=== PATIENT | female | born 1940 | race Caucasian/White ===

== ENCOUNTER 2016-11-11 15:58 | Emergency (ER) | payer MEDICARE, OTHER ==
[~2016-11-11] VITALS: Ht 157.5 cm; Wt 114.1 kg
[~2016-11-11 15:58] MED LIST: AMLO5TAB96 PO; ASPI325T PO; CELE200 PO; CIPR500T4 PO; LISI-366 PO; METO25 PO; PHEN-426 PO; PRAV80TA PO; SERT100 PO
[2016-11-11 16:05] VITALS: BP 216/92; PULSE 60; RESP 14; TEMP 97.9; O2SAT 95
--- NOTE | 2016-11-11 16:23 | PD ---
HPI Chief Complaint: Flank/Kidney Pain Time Seen by Provider: 16:13 Travel History International Travel<30 days: No Contact w/Intl Traveler<30days: No History of Present Illness HPI 75 y/o female presents with left-sided upper back pain that is been present over the past couple of days. She denies other associated symptoms. The pain is worse whenever she lifts her arm or moves around. She denies any associated trauma but she has been doing a lot of moving. She states quality pain is sharp. Severity is moderate. She denies any specific other modifying factors. She denies recurrent history of this. PFSH Past Medical History Anxiety: No Depression: No High Cholesterol: Yes Gastrointestinal Disorders: Yes (ULCERATIVE COLITIS) Hypertension: Yes Musculoskeletal: Yes (BACK PAIN; DEGENERATIVE SPINE) Psychiatric: No Menopausal: Yes Past Surgical History Section: Yes Gynecologic Surgery: Yes (2 C-SECTIONS) Social History Tobacco Use: Yes (1/2 PACK) Substance Use: No Allergies-Medications (Allergen,Severity, Reaction): Coded Allergies: No Known Allergies (Verified , 11/11/16) Reported Meds & Prescriptions Reported Meds & Active Scripts Active Macrobid (Nitrofurantoin Monoh/Nitrofur Macro) 100 Mg Cap 100 Mg PO BID 3 Days Reported Hydrochlorothiazide 25 Mg Tab 25 Mg PO DAILY Lisinopril 40 mg (Lisinopril) 40 Mg Tab 40 Mg PO DAILY Zoloft (Sertraline HCl) 100 Mg Tab 100 Mg PO DAILY Metoprolol Tartrate 25 mg (Metoprolol Tartrate) 25 Mg Tab 25 Mg PO DAILY Norvasc (Amlodipine Besylate) 5 Mg Tab 5 Mg PO DAILY Zoloft (Sertraline HCl) 100 Mg Tab 100 Mg PO DAILY Review of Systems Except as stated in HPI: all other systems reviewed are Neg Physical Exam Narrative GENERAL: Well-nourished, well-developed patient. Well-appearing SKIN: Warm and dry. HEAD: Normocephalic and atraumatic. EYES: No injection or drainage. ENT: No nasal drainage noted. NECK: Supple, trachea midline. CARDIOVASCULAR: Regular rate and rhythm RESPIRATORY: Breath sounds equal bilaterally. No accessory muscle use. GASTROINTESTINAL: Abdomen soft, non-tender, nondistended. EXTREMITIES: No edema. BACK: Nontender without obvious deformity in midline, no CVA tenderness, left mid lateral lumbar spine area is tender without overlying skin changes. NEUROLOGICAL: Awake and alert. Motor and sensory grossly within normal limits. Normal speech. Data Data Last Documented VS Vital Signs Date Time Temp Pulse Resp B/P (MAP) Pulse Ox O2 Delivery O2 Flow Rate FiO2 11/11/16 18:04 11/11/16 16:05 97.9 60 14 95 Room Air Orders Orders Complete Blood Count With Diff (11/11/16 16:17) Comprehensive Metabolic Panel (11/11/16 16:17) Urinalysis - C+S If Indicated (11/11/16 16:17) Lipase (11/11/16 16:17) Ct Abd/Pel W/O Iv Contrast (11/11/16 ) Iv Access Insert/Monitor (11/11/16 16:17) Oximetry (11/11/16 16:17) Ketorolac Inj (Toradol Inj) (11/11/16 16:30) Urine Culture (11/11/16 16:30) Labs Laboratory Tests Test 11/11/16 16:30 White Blood Count 11.0 TH/MM3 Red Blood Count 4.87 MIL/MM3 Hemoglobin 14.0 GM/DL Hematocrit 42.7 % Mean Corpuscular Volume 87.8 FL Mean Corpuscular Hemoglobin 28.7 PG Mean Corpuscular Hemoglobin Concent 32.8 % Red Cell Distribution Width 13.7 % Platelet Count 276 TH/MM3 Mean Platelet Volume 8.8 FL Neutrophils (%) (Auto) 65.5 % Lymphocytes (%) (Auto) 18.6 % Monocytes (%) (Auto) 10.6 % Eosinophils (%) (Auto) 3.2 % Basophils (%) (Auto) 2.1 % Neutrophils # (Auto) 7.1 TH/MM3 Lymphocytes # (Auto) 2.1 TH/MM3 Monocytes # (Auto) 1.2 TH/MM3 Eosinophils # (Auto) 0.4 TH/MM3 Basophils # (Auto) 0.2 TH/MM3 CBC Comment DIFF FINAL Differential Comment Urine Collection Type CLEAN CATCH Urine Color YELLOW Urine Turbidity CLEAR Urine pH 6.0 Urine Specific [place] 1.005 Urine Protein TRACE mg/dL Urine Glucose (UA) NEG mg/dL Urine Ketones NEG mg/dL Urine Occult Blood TRACE Urine Nitrite NEG Urine Bilirubin NEG Urine Leukocyte Esterase MOD Urine RBC 0-3 /hpf Urine WBC 9-14 /hpf Urine Squamous Epithelial Cells 0-5 /hpf Microscopic Urinalysis Comment CULTURE INDICATED Urine Collection Time 16:30 Blood Urea Nitrogen 27 MG/DL Creatinine 1.20 MG/DL Random Glucose 82 MG/DL Total Protein 7.1 GM/DL Albumin 3.7 GM/DL Calcium Level 8.6 MG/DL Alkaline Phosphatase 59 U/L Aspartate Amino Transf (AST/SGOT) 27 U/L Alanine Aminotransferase (ALT/SGPT) 31 U/L Total Bilirubin 0.4 MG/DL Sodium Level 137 MEQ/L Potassium Level 4.0 MEQ/L Chloride Level 103 MEQ/L Carbon Dioxide Level 27.7 MEQ/L Anion Gap 6 MEQ/L Estimat Glomerular Filtration Rate 44 ML/MIN Lipase 197 U/L MDM Medical Decision Making Medical Screen Exam Complete: Yes Emergency Medical Condition: Yes Medical Record Reviewed: Yes (past history confirmed) Interpretation(s) CBC & BMP Diagram 11/11/16 16:30 Total Protein 7.1, Albumin 3.7, Calcium Level 8.6, Alkaline Phosphatase 59, Aspartate Amino Transf (AST/SGOT) 27, Alanine Aminotransferase (ALT/SGPT) 31, Total Bilirubin 0.4 Last 24 hours Impressions Abdomen/Pelvis CT 11/11/16 0000 Signed Impressions: Service Date/Time: Friday, November 11, 2016 16:48 - CONCLUSION: No evidence of renal or ureteral calculi or obstructive uropathy. Multiple bilateral renal cortical cysts as described above. Uncomplicated diverticuli of the sigmoid colon and degenerative changes of the lower lumbar spine. Madi Jeffery MD Urine shows signs of infection and culture-patient states maybe she's been having a little frequency so we'll put on a 3 day course while awaiting culture and have her follow with primary for recheck Differential Diagnosis Stone, UTI, musculoskeletal... Narrative Course Will check lab work, urinalysis, imaging and dose with Toradol and reevaluate Discussion urinalysis with patient as discussed in interpretation, Patient denies any new complaints, all questions answered. Patient knows that follow up is incumbent on them and to return to the emergency room immediately if new or worsening symptoms develop. Patient given strict return precautions, vitals reviewed and are normal, agrees to further workup as an outpatient. Diagnosis Primary Impression: Back pain Qualified Codes: M54.9 - Dorsalgia, unspecified Patient Instructions: General Instructions Additional Instructions: Return as needed, alternate Tylenol and Motrin, follow with primary physician for recheck within 3 days Med/Other Pt SpecificInfo: Prescription(s) given Scripts Nitrofurantoin Monohydrate Macrocrystals (Macrobid) 100 Mg Cap 100 MG PO BID for Infection for 3 Days, CAP 0 Refills Prov: Amarilis Hyman MD 11/11/16 Disposition: 01 DISCHARGE HOME Condition: Stable Amarilis Hyman MD Nov 11, 2016 16:23
[2016-11-11] MEDS ORDERED: KETOROLAC TROMETHAMINE 30 MG/ML (IVP) VIAL IV PUSH ONE (16:30)
[2016-11-11 16:44] LABS: BLOOD, URINE TRACE (NEG); GLUCOSE,URINE NEG (NEG); KETONE, URINE NEG (NEG); NITRITE,URINE NEG (NEG)
[2016-11-11 16:45] LABS: AUTOMATED NEUTROPHIL # 7.1 TH/MM3 (1.8-7.7); BASOPHIL # 0.2 TH/MM3 (0-0.2); BASOPHIL % 2.1 % (0.0-2.0); EOSINOPHIL # 0.4 TH/MM3 (0-0.4); EOSINOPHIL % 3.2 % (0.0-4.0); HEMATOCRIT 42.7 % (35.0-46.0); LYMPH % 18.6 % (9.0-44.0); LYMPHOCYTE # 2.1 TH/MM3 (1.0-4.8); MEAN CELL VOLUME 87.8 FL (80.0-100.0); MEAN CORPUSCULAR HEMOGLOBIN 28.7 PG (27.0-34.0); MEAN CORPUSCULAR HGB CONC 32.8 % (32.0-36.0); MONO % 10.6 % (0.0-8.0); NEUT % 65.5 % (16.0-70.0); PLATELET COUNT 276 TH/MM3 (150-450); RED BLOOD COUNT 4.87 MIL/MM3 (4.00-5.30); RED CELL DISTRIBUTION WIDTH 13.7 % (11.6-17.2)
[2016-11-11] MEDS ORDERED: HYDR25TA5 PO (16:46)
[2016-11-11 16:47] LABS: HEMO FLAGS DIFF FINAL
[2016-11-11 16:52] LABS: METHOD OF COLLECTION CLEAN CATCH
[2016-11-11 16:53] LABS: CHLORIDE 103 MEQ/L (98-107); COMMENT (UR) CULTURE INDICATED; CULTURE IF INDICATED CULTURE INDICATED; RBC, URINE 0-3 /hpf (0-3); SODIUM (NA) 137 MEQ/L (136-145); SQUAMOUS EPITHELIAL CELL URINE 0-5 /hpf (0-5); URINE COLOR YELLOW (YELLW/STRAW)
[2016-11-11 16:57] LABS: ANION GAP 6 MEQ/L (5-15); BICARBONATE 27.7 MEQ/L (21.0-32.0); BLOOD UREA NITROGEN 27 MG/DL (7-18)
[2016-11-11 16:59] LABS: ALT (GPT) 31 U/L (10-53); AST (GOT) 27 U/L (15-37)
[2016-11-11 17:00] LABS: GLOMERULAR FILTRATION RATE 44 ML/MIN (>89)
[2016-11-11 17:02] LABS: ALKALINE PHOSPHATASE 59 U/L (45-117)
[2016-11-11 17:05] LABS: TOTAL BILIRUBIN ADULT 0.4 MG/DL (0.2-1.0)
--- NOTE | 2016-11-11 17:06 | RADRPT ---
EXAM DATE/TIME: 11/11/2016 16:48 [facility] COMPARISON: No previous studies available for comparison. INDICATIONS : Left flank pain. Evaluate for calculi. ORAL CONTRAST: No oral contrast ingested. RADIATION DOSE: 23.74 CTDIvol (mGy) MEDICAL HISTORY : Hypertension. Hypercholesterolemia. Ulcerative colitis.Renal disease. SURGICAL HISTORY : section. ENCOUNTER: Initial ACUITY: 1 day PAIN SCALE: 4/10 LOCATION: Left flank TECHNIQUE: Volumetric scanning of the abdomen and pelvis was performed. Using automated exposure control and adjustment of the mA and/or kV according to patient size, radiation dose was kept as low as reasonably achievable to obtain optimal diagnostic quality images. DICOM format image data is av ailable electronically for review and comparison. FINDINGS: LOWER LUNGS: The visualized lower lungs are clear. LIVER: Homogeneous density without lesion. There is no dilation of the biliary tree. No calcifi ed gallstones. Gallbladder is seen as a luminal structure without wall thickening SPLEEN: Normal size without lesion. PANCREAS: Within normal limits. KIDNEYS: There is no evidence of stone or obstructive uropathy hydronephrosis. There are multiple bilateral renal cysts on the right midpole posteriorly 1.1 cm and lower pole laterally 1.2 cm as wel l as off the tip of the lower pole 1.9 and 1.5 cm. On the left there is a upper pole 1.3 cm cyst and lower pole lateral 1.8 cm cyst.. ADRENAL GLANDS: Within normal limits. VASCULAR: There is no aortic aneurysm. BOWEL/MESENTERY: The stomach, small bowel, and colon demonstrate no acute abnormality. There is no free intraperitoneal air or fluid. A few uncomplicated diverticuli of the sigmoid colon ABDOMINAL WALL: Within normal limits. RETROPERITONEUM: There is no lymphadenopathy. BLADDER: No wall thickening or mass. REPRODUCTIVE: Within normal limits. INGUINAL: There is no lymphadenopathy or hernia. MUSCULOSKELETAL: Within normal limits for patient age. There is degenerative disc disease and fac et arthritic change of the lower lumbar spine. CONCLUSION: No evidence of renal or ureteral calculi or obstructive uropathy. Multiple bilateral renal cortical cysts as described above. Uncomplicated diverticuli of the sigmoid colon and degenerati ve changes of the lower lumbar spine. Madi Jeffery MD on November 11, 2016 at 16:58 Board Certified Radiologist. This report was verified electronically.
[2016-11-11] MEDS ORDERED: MACR100C2 PO (17:36)
== END 2016-11-11 18:05 | disposition home or self-care (01) ==
LOC: PHED 15:58
DX: M54.9 Dorsalgia, unspecified (principal); F17.210 Nicotine dependence, cigarettes, uncomplicated; I10 Essential (primary) hypertension
CPT/HCPCS: 74176; 80053; 81001; 83690; 85025; 87086; 96374; 99285; J1885

== ENCOUNTER → 2017-04-13 | Outpatient (CLI) | payer MEDICARE ==
[~2017-04-13] MED LIST changes: +AMLO5TAB2 PO; -AMLO5TAB96 PO; -ASPI325T PO; -CELE200 PO; -CIPR500T4 PO; -LISI-366 PO; +LISI40TA PO; -METO25 PO; +METO25TA3 PO; -PHEN-426 PO; -PRAV80TA PO; +PRAV80TA2 PO; +SERT-129 PO; -SERT100 PO
--- NOTE | 2017-04-13 11:04 | RADRPT ---
EXAM DATE/TIME: 04/13/2017 10:10 [facility] COMPARISON: No previous studies available for comparison. INDICATIONS : Evaluate hallux abducto valgus. MEDICAL HISTORY : Hypertension. Hypercholesterolemia. Ulcerative colitis.Renal disease. SURGICAL HISTORY : section. ENCOUNTER: Initial ACUITY: 1 day PAIN SCORE: 0/10 LOCATION: Right Foot FINDINGS: Three view examination of the right foot demonstrates slight hallux valgus. Scattered degenerative ch anges involving interphalangeal joints and mid foot. The calcaneus is intact. Bony mineralization i s normal. CONCLUSION: Slight hallux valgus. No fracture. Ty Turner MD on April 13, 2017 at 11:00 Board Certified Radiologist. This report was verified electronically.
--- NOTE | 2017-04-13 11:05 | RADRPT ---
EXAM DATE/TIME: 04/13/2017 10:13 [facility] COMPARISON: No previous studies available for comparison. INDICATIONS : Evaluate hallux abducto valgus. MEDICAL HISTORY : Hypertension. Hypercholesterolemia. Ulcerative colitis.Renal disease. SURGICAL HISTORY : section. ENCOUNTER: Initial ACUITY: 1 day PAIN SCORE: 0/10 LOCATION: Left Foot FINDINGS: Three view examination of the left foot demonstrates slight hallux valgus. Degenerative changes of th e first metatarsal phalangeal joint and interphalangeal joints. Moderate sized plantar calcaneal spur . No fracture. The calcaneus is intact. Bony mineralization is normal. CONCLUSION: Slight hallux valgus and degenerative changes. Plantar calcaneal spur. Ty Turner MD on April 13, 2017 at 11:02 Board Certified Radiologist. This report was verified electronically.
== END ==
LOC: HRAD 09:49
PROVIDERS: ATTEND Podiatrist Primary Podiatric Medicine
DX: M20.11 Hallux valgus (acquired), right foot (principal)
CPT/HCPCS: 73630